=== PATIENT | male | born 1980 | race Caucasian/White ===

== ENCOUNTER 2017-12-21 15:25 | Emergency (ER) | payer OTHER ==
[2017-12-21 16:23] VITALS: BP 166/94
--- NOTE | 2017-12-21 16:58 | UC ---
Throat Pain/Nasal Harvinder HPI - HPI Summary HPI Summary: 2 day history of dry cough, drainage, chest feels a bit burning and congested. No shortness of breath. Voice is hoarse. Has been involved with care of GM who was just admitted to hospital for treatment of pneumonia. Sore throat with dysphagia, concerned about strep. - History of Current Complaint Chief Complaint: UCRespiratory Stated Complaint: ST/COUGH Time Seen by Provider: 12/21/17 16:47 Hx Obtained From: Patient Onset/Duration: Gradual Onset, Lasting Days - 2 Severity: Mild Pain Intensity: 6 Cough: Nonproductive Associated Signs & Symptoms: Positive: Dysphagia, Hoarseness, Sinus Discomfort - Epiglottits Risk Factors Epiglottis Risk Factors: Negative - Allergies/Home Medications Allergies/Adverse Reactions: Allergies Allergy/AdvReac Type Severity Reaction Status Date / Time No Known Allergies Allergy Verified 12/21/17 16:15 Home Medications: Home Medications Anxiety Med 1 tab Q4HR PRN 12/21/17 [History Confirmed 12/21/17] PMH/Surg Hx/FS Hx/Imm Hx - Additional Past Medical History Additional PMH: Morbidly obese; has lost 150 pounds over past year and no longer has diabetic range blood sugars. 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 Alcohol Use: Rare Substance Use Type: None Smoking Status (MU): Never Smoked Tobacco - Immunization History Most Recent Influenza Vaccination: [id number] Most Recent Tetanus Shot: UTD Review of Systems Constitutional: Fatigue Skin: Negative Eyes: Negative ENT: Sore Throat, Sinus Congestion Respiratory: Negative Cardiovascular: Negative Gastrointestinal: Negative Genitourinary: Negative Motor: Negative Neurovascular: Negative Musculoskeletal: Negative Neurological: Headache - mild Psychological: Negative Is Patient Immunocompromised?: No All Other Systems Reviewed And Are Negative: Yes Physical Exam Triage Information Reviewed: Yes Appearance: Well-Appearing, Pain Distress - minimal, Obese Vital Signs: Initial Vital Signs Temp 98.3 F 12/21/17 16:16 Pulse 73 12/21/17 16:16 Resp 18 12/21/17 16:16 BP 166/94 12/21/17 16:16 Pulse Ox 99 12/21/17 16:16 Eyes: Positive: Conjunctiva Clear ENT: Positive: Pharyngeal erythema - posterior erythema and drainage, TM dull - on right.. Negative: Tonsillar swelling, Tonsillar exudate Neck: Positive: Supple, Nontender, No Lymphadenopathy Respiratory: Positive: Lungs clear, Normal breath sounds Cardiovascular: Positive: RRR, No Murmur Musculoskeletal Exam: Normal Neurological: Positive: Alert, Muscle Tone Normal Psychological Exam: Normal Skin Exam: Normal Throat Pain/Nasal Course/Dx - Course Course Of Treatment: trial flonase and antihistamine for possible allergies. symptomatic treatment. - Differential Dx/Diagnosis Differential Diagnosis/HQI/PQRI: Laryngitis, Tonsillitis, URI, Other - allergies Provider Diagnoses: URI, possible allergies. Discharge - Sign-Out/Discharge Documenting (check all that apply): Discharge/Admit/Transfer - Discharge Plan Condition: Stable Disposition: HOME Patient Education Materials: Pharyngitis (ED) Referrals: Deisy Garcia YARN WRAPPER [Primary Care Provider] - Additional Instructions: The findings are consistent with either a viral illness or environmental allergies related to high pollen counts. Your tonsils are not enlarged and do not look infected. You might try use of flonase, a steroid nasal spray, 2 sprays to both nostrils once daily. You could also try taking a non-sedating antihistamine such as fexofenadine 180mg once daily (generic addi) OR loratidine 10mg once daily ( generic Claritin). - Billing Disposition and Condition Condition: STABLE Disposition: HOME
== END 2017-12-21 17:14 | disposition home or self-care (01) ==
LOC: UCCORT 15:25
DX: J06.9 Acute upper respiratory infection, unspecified (principal); F41.9 Anxiety disorder, unspecified; Z79.899 Other long term (current) drug therapy
CPT/HCPCS: 99211; G0463

== ENCOUNTER 2018-01-20 15:47 | Emergency (ER) | payer OTHER ==
[2018-01-20 16:26] VITALS: BP 170/105
[2018-01-20] MEDS ORDERED: Ibuprofen TAB* 600 MG PO ONE (16:37)
--- NOTE | 2018-01-20 17:20 | UC ---
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 Able to weight-bear but with significant pain. [place] a pop. - History of Current Complaint Chief Complaint: UCLowerExtremity Stated Complaint: R LOWER CALF COMP Time Seen by Provider: 01/20/18 16:27 Hx Obtained From: Patient, Family/Automobile Body Repairer - Onset/Duration: Sudden Onset, Lasting Minutes, Still Present Severity Initially: Moderate Severity Currently: Moderate Pain Intensity: 8 Pain Scale Used: 0-10 Numeric Aggravating Factor(s): Standing Alleviating Factor(s): Rest Able to Bear Weight: Yes - WITH PAIN - Allergies/Home Medications Allergies/Adverse Reactions: Allergies Allergy/AdvReac Type Severity Reaction Status Date / Time No Known Allergies Allergy Verified 01/20/18 16:24 PMH/Surg Hx/FS Hx/Imm Hx Endocrine History: Diabetes Cardiovascular History: Hypertension - Surgical History Surgical History: Yes Surgery Procedure, Year, and Place: appy - Family History Known Family History: Positive: Hypertension - Social History Alcohol Use: Rare Substance Use Type: None Smoking Status (MU): Never Smoked Tobacco - Immunization History Most Recent Influenza Vaccination: [id number] Most Recent Tetanus Shot: UTD Review of Systems Constitutional: Negative Skin: Negative Respiratory: Negative Cardiovascular: Negative Gastrointestinal: Negative Musculoskeletal: Calf Tenderness, Decreased ROM All Other Systems Reviewed And Are Negative: Yes Physical Exam Triage Information Reviewed: Yes Appearance: Well-Appearing, No Pain Distress, Well-Nourished Vital Signs: Initial Vital Signs Temp 98.5 F 01/20/18 16:19 Pulse 90 01/20/18 16:19 Resp 14 01/20/18 16:19 BP 170/105 01/20/18 16:19 Pulse Ox 98 01/20/18 16:19 Vital Signs Reviewed: Yes Eyes: Positive: Conjunctiva Clear ENT: Positive: Hearing grossly normal Neck: Positive: Supple Respiratory: Positive: No respiratory distress, No accessory muscle use Cardiovascular: Positive: Pulses Normal Abdomen Description: Positive: Soft Musculoskeletal: Positive: No Edema, Other: - TTP RIGHT GASTROCNEMIUS. ACHILLES INTACT. NO BONY TENDERNESS OVER ANKLE OR KNEE. RIGHT CALF CIRC 47CM. LEFT CALF CIRC 47.5CM Neurological: Positive: Alert Psychological: Positive: Age Appropriate Behavior Skin: Negative: rashes Lower Extremity Course/Dx - Differential Dx/Diagnosis Provider Diagnoses: RIGHT GASTROCNEMIUS STRAIN Discharge - Sign-Out/Discharge Documenting (check all that apply): Discharge/Admit/Transfer - Discharge Plan Condition: Stable Disposition: HOME Patient Education Materials: Tendon Rupture (ED) Forms: *Work Release Referrals: Cleve Dempsey MD [Medical Doctor] - 3 Days Deisy Garcia NP [Primary Care Provider] - If Needed Additional Instructions: I SUSPECT YOU HAVE SUSTAINED A GASTROCNEMIUS STRAIN. USE THE TOI BANDAGE FOR COMPRESSION OR PURCHASE A CALF COMPRESSION SLEEVE. IBUPROFEN NEEDED FOR DISCOMFORT. REST AND AVOID WEIGHTBEARING ABLE. ELEVATE YOUR LEG WHEN SEATED. USE THE CRUTCHES OR A CANE TO HELP WITH MOBILITY. CALL [facility] MONDAY MORNING FOR AN APPOINTMENT TO BE SEEN THIS WEEK. The initial treatment for a gastrocnemius tear is rest until you can walk without a limp. If pain is severe, you may need crutches to assist with ambulation. Heel lifts decrease the stretch of the calf muscles, thereby reducing pain, and may be beneficial initially. You should apply ice to the injured area four times per day for 20 minutes at a time until swelling subsides. Nonsteroidal antiinflammatory medication or acetaminophen can be used as needed for pain. Compression sleeves worn over the calf help to decrease hematoma formation, especially shortly after the injury. In addition, use of compression sleeves may help speed return to activity. - Billing Disposition and Condition Condition: STABLE Disposition: Home
== END 2018-01-20 17:18 | disposition home or self-care (01) ==
LOC: UCCORT 15:47
DX: S86.111A Strain of other muscle(s) and tendon(s) of posterior muscle group at lower leg level, right leg, initial encounter (principal); X58.XXXA Exposure to other specified factors, initial encounter; Y93.67 Activity, basketball; Y92.9 Unspecified place or not applicable; E11.9 Type 2 diabetes mellitus without complications; I10 Essential (primary) hypertension
CPT/HCPCS: 99213; A9270-GY; G0463

== ENCOUNTER 2018-09-15 12:19 | Emergency (ER) | payer OTHER ==
[2018-09-15 13:31] VITALS: BP 173/106
--- NOTE | 2018-09-15 14:20 | UC ---
FLU HPI - HPI Summary HPI Summary: Pt presents with c/o sudden onset of chills, body aches, chest congestion, FINCH and nasal congestion. X 1 day. - History of Current Complaint Chief Complaint: UCGeneralIllness Stated Complaint: HEADACHE, COUGH Time Seen by Provider: 09/15/18 13:59 Hx Obtained From: Patient Onset/Duration: Sudden Onset, Lasting Days, Still Present Severity Currently: Mild Severity Initially: Mild Pain Intensity: 0 Associated Signs & Symptoms: Positive: Myalgia, Cough, Nasal Congestion, Headache Related Hx: Possible Flu/Infectious Exposure - Risk Factors Influenza Risk Factors: Negative - Allergy/Home Medications Allergies/Adverse Reactions: Allergies Allergy/AdvReac Type Severity Reaction Status Date / Time No Known Allergies Allergy Verified 09/15/18 13:28 Home Medications: Home Medications NK [No Home Medications Reported] 09/15/18 [History Confirmed 09/15/18] PMH/Surg Hx/FS Hx/Imm Hx Previously Healthy: Yes Endocrine History: Diabetes - type 2 managed through diet Cardiovascular History: Hypertension - Has "white coat" syndrome - Surgical History Surgical History: Yes Surgery Procedure, Year, and Place: Appendectomy, ~1995, [place] - Family History Known Family History: Positive: Hypertension - Social History Occupation: Employed Full-time Lives: With Family Alcohol Use: Occasionally Substance Use Type: None Smoking Status (MU): Light Every Day Tobacco Smoker Type: Smokeless Tobacco Amount Used/How Often: 1/4 can daily Length of Time of Smoking/Using Tobacco: Since Age 17 Have You Smoked in the Last Year: Yes - smokeless tobacco - Immunization History Most Recent Influenza Vaccination: [id number] Most Recent Tetanus Shot: UTD Review of Systems All Other Systems Reviewed And Are Negative: Yes Constitutional: Positive: Chills, Fatigue Skin: Positive: Negative Eyes: Positive: Negative ENT: Positive: Sinus Congestion Respiratory: Positive: Cough Cardiovascular: Positive: Negative Gastrointestinal: Positive: Negative Genitourinary: Positive: Negative Motor: Positive: Negative Neurovascular: Positive: Negative Musculoskeletal: Positive: Myalgia Neurological: Positive: Headache Psychological: Positive: Negative Is Patient Immunocompromised?: No Physical Exam Triage Information Reviewed: Yes Appearance: Well-Appearing, Obese Vital Signs: Initial Vital Signs Temp 99.4 F 09/15/18 13:25 Pulse 92 09/15/18 13:25 Resp 21 09/15/18 13:25 BP 173/106 09/15/18 13:25 Pulse Ox 99 09/15/18 13:25 Vital Signs Reviewed: Yes Eye Exam: Normal ENT: Positive: Nasal congestion, Sinus tenderness Dental Exam: Normal Neck exam: Normal Respiratory Exam: Normal Cardiovascular Exam: Normal Musculoskeletal Exam: Normal Neurological Exam: Normal Psychological Exam: Normal Skin Exam: Normal Flu Course/Dx - Differential Dx/Diagnosis Differential Diagnosis/HQI/PQRI: Influenza, Upper Respiratory Infection Provider Diagnosis: Viral syndrome, Elevated blood pressure reading Discharge - Sign-Out/Discharge Documenting (check all that apply): Patient Departure All imaging exams completed and their final reports reviewed: No Studies - Discharge Plan Condition: Stable Disposition: HOME Patient Education Materials: Viral Syndrome (ED), Hypertension (ED) Referrals: Deisy Garcia NP [Primary Care Provider] - As Soon As Possible Additional Instructions: You may use Coricidin brand OTC medication for symptom management of your viral syndrome. - Billing Disposition and Condition Condition: STABLE Disposition: Home
[2018-09-15 14:28] LABS: Influenza A Molecular NEGATIVE (Negative); Influenza B Molecular NEGATIVE (Negative)
== END 2018-09-15 14:39 | disposition home or self-care (01) ==
LOC: UCCORT 12:19
DX: B34.9 Viral infection, unspecified (principal); R03.0 Elevated blood-pressure reading, without diagnosis of hypertension; R09.89 Other specified symptoms and signs involving the circulatory and respiratory systems; R51 Headache; R09.81 Nasal congestion; E11.9 Type 2 diabetes mellitus without complications; F17.290 Nicotine dependence, other tobacco product, uncomplicated
CPT/HCPCS: 99211; G0463